=== PATIENT | female | born 1950 | race Caucasian/White ===

== ENCOUNTER 2018-05-19 09:13 | Outpatient (REF) | payer MEDICARE, SELFPAY ==
[2018-05-19 22:33] LABS: Anion Gap 10.1 mmol/L (3-11); BUN 26 mg/dL (7-18); CO2 28.9 mmol/L (21.0-32.0); CREATININE 1.23 mg/dL (0.55-1.02); Calcium 10.1 mg/dL (8.5-10.1); Chloride 104 mmol/L (98-107); Estimated GFR 43.55 (mL/min/1.73m2); Glucose 129 mg/dL (70-100); Potassium 3.8 mmol/L (3.5-5.1); Sodium 143 mmol/L (136-145)
== END 2018-05-19 09:33 ==
LOC: NCHCN 09:13
PROVIDERS: PCP Nurse Practitioner Family; Visit Provider Nurse Practitioner Family
DX: E11.9 Type 2 diabetes mellitus without complications (principal)
CPT/HCPCS: 80048

== ENCOUNTER 2019-05-21 08:28 | Outpatient (REF) | payer OTHER, SELFPAY ==
[2019-05-21 21:23] LABS: Anion Gap 11.3 mmol/L (3-11); BUN 23 mg/dL (7-18); CO2 28.7 mmol/L (21.0-32.0); CREATININE 1.51 mg/dL (0.55-1.02); Calcium 10.2 mg/dL (8.5-10.1); Chloride 104 mmol/L (98-107); Estimated GFR 34.27 (mL/min/1.73m2); Glucose 134 mg/dL (70-100); Sodium 144 mmol/L (136-145)
== END 2019-05-21 08:48 ==
LOC: NCHCN 08:28
PROVIDERS: PCP Nurse Practitioner Family; Visit Provider Nurse Practitioner Family
DX: E11.9 Type 2 diabetes mellitus without complications (principal)
CPT/HCPCS: 80048

== ENCOUNTER 2020-02-08 08:56 | Outpatient (REF) | payer OTHER, SELFPAY ==
[2020-02-08 21:51] LABS: Anion Gap 8.6 mmol/L (3-11); BUN 23 mg/dL (7-18); CO2 29.4 mmol/L (21.0-32.0); CREATININE 1.77 mg/dL (0.55-1.02); Calcium 10.3 mg/dL (8.5-10.1); Chloride 104 mmol/L (98-107); Estimated GFR 28.44 (mL/min/1.73m2); Glucose 115 mg/dL (74-106); Potassium 4.4 mmol/L (3.5-5.1); Sodium 142 mmol/L (136-145)
[2020-02-08 21:59] LABS: Hemoglobin A1C 5.8 % (3.8-5.6)
== END 2020-02-08 09:16 ==
LOC: NCHCN 08:56
PROVIDERS: PCP Nurse Practitioner Family; Visit Provider Nurse Practitioner Family
DX: E11.9 Type 2 diabetes mellitus without complications (principal); I10 Essential (primary) hypertension; N28.9 Disorder of kidney and ureter, unspecified
CPT/HCPCS: 80048; 83036

== ENCOUNTER 2020-02-17 10:14 | Outpatient (REF) | payer OTHER, SELFPAY ==
[2020-02-17 21:37] LABS: Anion Gap 10.6 mmol/L (3-11); BUN 23 mg/dL (7-18); CO2 29.4 mmol/L (21.0-32.0); CREATININE 1.75 mg/dL (0.55-1.02); Calcium 10.4 mg/dL (8.5-10.1); Chloride 101 mmol/L (98-107); Estimated GFR 28.82 (mL/min/1.73m2); Glucose 119 mg/dL (74-106); Potassium 4.3 mmol/L (3.5-5.1); Sodium 141 mmol/L (136-145)
[2020-02-17 22:08] LABS: COMMENT (LAB VIEW ONLY) 52.51 mg/dL; Microalb ug/mg Crea 6.5 ug/mg Cr
== END 2020-02-17 10:34 ==
LOC: NCHCN 10:14
PROVIDERS: PCP Nurse Practitioner Family; Visit Provider Nurse Practitioner Family
DX: N28.9 Disorder of kidney and ureter, unspecified (principal)
CPT/HCPCS: 80048; 82043; 82570

== ENCOUNTER 2020-04-29 14:57 | Outpatient (REF) | payer OTHER, SELFPAY ==
[2020-05-03 02:00] LABS: SARS-CoV-2 RNA Undetected (Undetected); SARS-CoV-2 Specimen Source Nasopharynx
== END 2020-04-29 15:17 ==
LOC: NCHCN 14:57
PROVIDERS: PCP Nurse Practitioner Family; Visit Provider Nurse Practitioner Family
DX: Z11.59 Encounter for screening for other viral diseases (principal)
CPT/HCPCS: U0003

== ENCOUNTER 2020-06-08 09:30 | Outpatient (REF) | payer OTHER, SELFPAY ==
[2020-06-08 22:06] LABS: Abs Immature Grans 0.02 10^3/uL (0.0-0.06); Absolute Basophil Count 0.03 10^3/uL (0.0-0.2); Absolute Eosinophil Count 0.28 10^3/uL (0.0-0.7); Absolute Lymphocyte Count 1.72 10^3/uL (1.2-3.4); Absolute Monocyte Count 0.47 10^3/uL (0.1-0.8); Absolute Neutrophil Count 3.36 10^3/uL (1.2-6.7); Basophils % 0.5; Eosinophils % 4.8; HGB 11.9 g/dL (11.2-15.7); Immature Grans % 0.3; Lymphocytes % 29.3; MCH 30.2 pg (27.0-33.0); MCHC 31.3 % (32.0-36.0); MCV 96.4 fL (80-95); MPV 11.3 fL (8.0-11.0); Neutrophils % 57.1; Nucleated RBC 0 %; Platelet Count 252 10^3/uL (130-400); RBC 3.94 10^6/uL (3.93-5.22); RDW 13.9 % (11.7-14.6); RDW-SD 49.1 fL; WBC 5.88 10^3/uL (4.4-10.8)
[2020-06-08 22:10] LABS: Anion Gap 6.8 mmol/L (3-11); BUN 21 mg/dL (7-18); CO2 30.2 mmol/L (21.0-32.0); CREATININE 1.58 mg/dL (0.55-1.02); Calcium 9.4 mg/dL (8.5-10.1); Chloride 104 mmol/L (98-107); Estimated GFR 32.43 (mL/min/1.73m2); Glucose 124 mg/dL (74-106); Potassium 4.6 mmol/L (3.5-5.1); Sodium 141 mmol/L (136-145)
== END 2020-06-08 09:50 ==
LOC: NCHCN 09:30
PROVIDERS: PCP Nurse Practitioner Family; Visit Provider Internal Medicine
DX: D64.9 Anemia, unspecified (principal); N18.4 Chronic kidney disease, stage 4 (severe)
CPT/HCPCS: 80048; 85025

== ENCOUNTER 2020-09-12 19:02 | Outpatient (REF) | payer OTHER, SELFPAY ==
[2020-09-12 13:51] LABS: Anion Gap 9.3 mmol/L (3-11); BUN 20 mg/dL (7-18); CO2 27.7 mmol/L (21.0-32.0); Calcium 9.3 mg/dL (8.5-10.1); Chloride 102 mmol/L (98-107); Estimated GFR 31.96 (mL/min/1.73m2); Glucose 152 mg/dL (74-106); Potassium 4.3 mmol/L (3.5-5.1); Sodium 139 mmol/L (136-145)
[2020-09-12 13:57] LABS: Hemoglobin A1C 6.4 % (<5.7)
== END 2020-09-12 19:22 ==
LOC: NCHCN 19:02
PROVIDERS: PCP Nurse Practitioner Family; Visit Provider Nurse Practitioner Family
DX: E11.9 Type 2 diabetes mellitus without complications (principal); I10 Essential (primary) hypertension; N18.4 Chronic kidney disease, stage 4 (severe); C64.9 Malignant neoplasm of unspecified kidney, except renal pelvis; L98.9 Disorder of the skin and subcutaneous tissue, unspecified
CPT/HCPCS: 80048; 83036

== ENCOUNTER 2021-02-01 15:18 | Outpatient (REF) | payer OTHER, SELFPAY ==
[2021-02-01 13:57] LABS: Anion Gap 7.6 mmol/L (3-11); BUN 24 mg/dL (7-18); CO2 33.4 mmol/L (21.0-32.0); CREATININE 1.7 mg/dL (0.55-1.02); Calcium 9.4 mg/dL (8.5-10.1); Chloride 102 mmol/L (98-107); Estimated GFR 29.71 (mL/min/1.73m2); Glucose 195 mg/dL (74-106); Potassium 3.8 mmol/L (3.5-5.1); Sodium 143 mmol/L (136-145)
[2021-02-01 14:17] LABS: COMMENT (LAB VIEW ONLY) 77.09 mg/dL; Microalb ug/mg Crea 28.9 ug/mg Cr
== END 2021-02-01 15:19 | disposition home or self-care (01) ==
LOC: NCHCN 15:18
PROVIDERS: PCP Nurse Practitioner Family; Visit Provider Nurse Practitioner Community Health
DX: N18.4 Chronic kidney disease, stage 4 (severe) (principal)
CPT/HCPCS: 80048; 82043; 82570

== ENCOUNTER 2021-03-27 08:18 | Outpatient (REF) | payer OTHER, SELFPAY ==
[2021-03-27 13:33] LABS: Abs Immature Grans 0.02 10^3/uL (0.0-0.06); Absolute Basophil Count 0.03 10^3/uL (0.0-0.2); Absolute Eosinophil Count 0.25 10^3/uL (0.0-0.7); Absolute Monocyte Count 0.51 10^3/uL (0.1-0.8); Absolute Neutrophil Count 4.18 10^3/uL (1.2-6.7); Basophils % 0.4; Eosinophils % 3.7; HCT 39.4 % (36.0-46.0); HGB 13.3 g/dL (11.2-15.7); Immature Grans % 0.3; Lymphocytes % 26.5; MCH 31.8 pg (27.0-33.0); MCHC 33.8 % (32.0-36.0); MCV 94.3 fL (80-95); MPV 10.7 fL (8.0-11.0); Monocytes % 7.5; Neutrophils % 61.6; Nucleated RBC 0 %; Platelet Count 265 10^3/uL (130-400); RBC 4.18 10^6/uL (3.93-5.22); RDW 13.7 % (11.7-14.6); RDW-SD 47.7 fL; WBC 6.79 10^3/uL (4.4-10.8)
[2021-03-27 13:44] LABS: Anion Gap 3.1 mmol/L (3-11); BUN 25 mg/dL (7-18); CO2 31.9 mmol/L (21.0-32.0); CREATININE 1.7 mg/dL (0.55-1.02); Calcium 9.4 mg/dL (8.5-10.1); Chloride 95 mmol/L (98-107); Estimated GFR 29.71 (mL/min/1.73m2); Glucose 163 mg/dL (74-106); Potassium 3.7 mmol/L (3.5-5.1); Sodium 130 mmol/L (136-145)
[2021-03-27 14:35] LABS: Hemoglobin A1C 6.5 % (<5.7)
== END 2021-03-27 08:19 | disposition home or self-care (01) ==
LOC: NCHCN 08:18
PROVIDERS: PCP Nurse Practitioner Family; Visit Provider Nurse Practitioner Family
DX: I12.9 Hypertensive chronic kidney disease with stage 1 through stage 4 chronic kidney disease, or unspecified chronic kidney disease (principal); E11.22 Type 2 diabetes mellitus with diabetic chronic kidney disease; N18.4 Chronic kidney disease, stage 4 (severe)
CPT/HCPCS: 80048; 83036; 85025

== ENCOUNTER 2021-04-04 10:53 | Outpatient (REF) | payer OTHER, SELFPAY ==
[2021-04-04 14:33] LABS: Anion Gap 8.9 mmol/L (3-11); BUN 24 mg/dL (7-18); CO2 30.1 mmol/L (21.0-32.0); CREATININE 1.6 mg/dL (0.55-1.02); Calcium 9.6 mg/dL (8.5-10.1); Chloride 92 mmol/L (98-107); Estimated GFR 31.87 (mL/min/1.73m2); Glucose 173 mg/dL (74-106); Potassium 3.4 mmol/L (3.5-5.1); Sodium 131 mmol/L (136-145)
== END 2021-04-04 10:54 | disposition home or self-care (01) ==
LOC: NCHCN 10:53
PROVIDERS: PCP Nurse Practitioner Family; Visit Provider Nurse Practitioner Family
DX: Z86.39 Personal history of other endocrine, nutritional and metabolic disease (principal)
CPT/HCPCS: 80048

== ENCOUNTER 2021-05-01 16:03 | Outpatient (REF) | payer OTHER, SELFPAY ==
[2021-05-01 17:52] LABS: Anion Gap 11.5 mmol/L (3-11); BUN 18 mg/dL (7-18); CO2 26.5 mmol/L (21.0-32.0); CREATININE 1.5 mg/dL (0.55-1.02); Calcium 9.4 mg/dL (8.5-10.1); Chloride 100 mmol/L (98-107); Estimated GFR 34.33 (mL/min/1.73m2); Glucose 166 mg/dL (74-106); Potassium 4.6 mmol/L (3.5-5.1); Sodium 138 mmol/L (136-145)
== END 2021-05-01 16:04 | disposition home or self-care (01) ==
LOC: LBN 16:03
PROVIDERS: PCP Nurse Practitioner Family; Visit Provider Nurse Practitioner Family
DX: E11.649 Type 2 diabetes mellitus with hypoglycemia without coma (principal); E87.1 Hypo-osmolality and hyponatremia
CPT/HCPCS: 80048

== ENCOUNTER 2021-05-11 09:46 | Outpatient (REF) | payer OTHER, SELFPAY ==
[2021-05-11 17:11] LABS: Anion Gap 5.2 mmol/L (3-11); BUN 16 mg/dL (7-18); CO2 31.8 mmol/L (21.0-32.0); CREATININE 1.4 mg/dL (0.55-1.02); Calcium 9.4 mg/dL (8.5-10.1); Chloride 105 mmol/L (98-107); Estimated GFR 37.18 (mL/min/1.73m2); Glucose 195 mg/dL (74-106); Potassium 4.2 mmol/L (3.5-5.1); Sodium 142 mmol/L (136-145)
== END 2021-05-11 09:47 | disposition home or self-care (01) ==
LOC: NCHCN 09:46
PROVIDERS: PCP Nurse Practitioner Family; Visit Provider Nurse Practitioner Family
DX: I10 Essential (primary) hypertension (principal); N18.4 Chronic kidney disease, stage 4 (severe); Z86.39 Personal history of other endocrine, nutritional and metabolic disease; R60.0 Localized edema; M16.12 Unilateral primary osteoarthritis, left hip
CPT/HCPCS: 80048

== ENCOUNTER 2021-05-17 21:36 | Outpatient (REF) | payer OTHER, SELFPAY ==
[2021-05-17 22:35] LABS: Sodium, Urine 65 mmol/L
[2021-05-17 22:35] LABS: Albumin 4.1 g/dL (3.4-5.0); Anion Gap 8.8 mmol/L (3-11); BUN 14 mg/dL (7-18); CO2 30.2 mmol/L (21.0-32.0); CREATININE 1.4 mg/dL (0.55-1.02); Calcium 9.8 mg/dL (8.5-10.1); Chloride 103 mmol/L (98-107); Estimated GFR 37.18 (mL/min/1.73m2); Glucose 159 mg/dL (74-106); PHOSPHORUS 4.7 mg/dL (2.6-4.7); Potassium 3.9 mmol/L (3.5-5.1); Sodium 142 mmol/L (136-145)
[2021-05-17 22:54] LABS: Bilirubin Negative (Negative); Blood Negative (Negative); Clarity Clear (Clear); Glucose Negative (Negative); Ketones Negative (Negative); Leukocyte Esterase Moderate (Negative); Nitrite Negative (Negative); Specific Gravity 1.015 (1.005-1.025); Urobilinogen 0.2 EU/dL (Up TO 0.2)
[2021-05-17 23:16] LABS: Bacteria Few HPF (Negative); C & S Indicated? Yes; Casts Negative LPF (Negative); Crystals Negative HPF (Negative); Epithelial Cells Few HPF (Negative); Mucus Negative (Negative); RBC 0-2 HPF (0-2)
[2021-05-18 16:51] LABS: Osmolality, Urine 212 mOsm/kg (150-1,150)
== END 2021-05-17 21:37 | disposition home or self-care (01) ==
LOC: LBN 21:36
PROVIDERS: PCP Nurse Practitioner Family; Visit Provider Nurse Practitioner Family
DX: E87.1 Hypo-osmolality and hyponatremia (principal); R82.998 Other abnormal findings in urine
CPT/HCPCS: 80051; 80069; 83935; 81003; 81015; 82436; 84300; 87086

== ENCOUNTER 2021-06-13 11:39 | Outpatient (REF) | payer OTHER, SELFPAY ==
[2021-06-13 15:32] LABS: Hemoglobin A1C 7.6 % (<5.7)
[2021-06-13 15:35] LABS: Anion Gap 8.3 mmol/L (3-11); BUN 16 mg/dL (7-18); CO2 29.7 mmol/L (21.0-32.0); CREATININE 1.4 mg/dL (0.55-1.02); Calcium 9.4 mg/dL (8.5-10.1); Chloride 101 mmol/L (98-107); Estimated GFR 37.18 (mL/min/1.73m2); Glucose 321 mg/dL (74-106); Potassium 4.6 mmol/L (3.5-5.1); Sodium 139 mmol/L (136-145)
== END 2021-06-13 11:40 | disposition home or self-care (01) ==
LOC: NCHCN 11:39
PROVIDERS: PCP Nurse Practitioner Family; Visit Provider Nurse Practitioner Family
DX: E11.9 Type 2 diabetes mellitus without complications (principal); N18.4 Chronic kidney disease, stage 4 (severe); D64.9 Anemia, unspecified
CPT/HCPCS: 80048; 83036

== ENCOUNTER 2021-09-15 09:36 | Outpatient (REF) | payer OTHER, SELFPAY ==
[2021-09-15 16:03] LABS: Hemoglobin A1C 7.9 % (<5.7)
[2021-09-15 16:21] LABS: Anion Gap 10.5 mmol/L (3-11); BUN 28 mg/dL (7-18); CO2 29.5 mmol/L (21.0-32.0); CREATININE 1.6 mg/dL (0.55-1.02); Calcium 9.4 mg/dL (8.5-10.1); Chloride 99 mmol/L (98-107); Estimated GFR 31.87 (mL/min/1.73m2); Glucose 188 mg/dL (74-106); Potassium 3.8 mmol/L (3.5-5.1); Sodium 139 mmol/L (136-145)
== END 2021-09-15 09:37 | disposition home or self-care (01) ==
LOC: NCHCN 09:36
PROVIDERS: PCP Nurse Practitioner Family; Visit Provider Nurse Practitioner Family
DX: E11.9 Type 2 diabetes mellitus without complications (principal); I10 Essential (primary) hypertension
CPT/HCPCS: 80048; 83036

== ENCOUNTER 2021-09-18 14:48 | Outpatient (REF) | payer OTHER, SELFPAY ==
--- NOTE | 2021-09-18 09:15 | SKI_PTH ---
PATIENT: Patricio LOC: [facility] U#:[id number] AGE/SX: 70/F ROOM: RE09/18/[address]: Karyna Garrido : 1950 BED: DIS: 09/18/2021 SPEC #: [id number] RECD: 09/18/21 17:22 STATUS: MASON LINDO #: [id number] JONI: 09/18/21 09:[address]: Karyna Zimmerman DEPT: Surgical Specimen RECD BY: Sirisha Logan Tissues: 1 - SKIN BIOPSY(SHAVE/PUNCH) Procedures: IMMUNOPEROXIDASE STAIN SKIN LEVEL 4 Comments: [id number]
== END 2021-09-18 14:49 | disposition home or self-care (01) ==
LOC: NCHCN 14:48
PROVIDERS: PCP Nurse Practitioner Family; Visit Provider Nurse Practitioner Family
DX: D22.71 Melanocytic nevi of right lower limb, including hip (principal)
CPT/HCPCS: 88305; 88361

== ENCOUNTER 2021-09-21 11:50 | Outpatient (REF) | payer OTHER, SELFPAY ==
[2021-09-21 14:47] LABS: Anion Gap 7.2 mmol/L (3-11); BUN 30 mg/dL (7-18); CO2 32.8 mmol/L (21.0-32.0); CREATININE 1.5 mg/dL (0.55-1.02); Calcium 9.5 mg/dL (8.5-10.1); Chloride 100 mmol/L (98-107); Estimated GFR 34.33 (mL/min/1.73m2); Glucose 230 mg/dL (74-106); Sodium 140 mmol/L (136-145)
== END 2021-09-21 11:51 | disposition home or self-care (01) ==
LOC: NCHCN 11:50
PROVIDERS: PCP Nurse Practitioner Family; Visit Provider Nurse Practitioner Family
DX: I10 Essential (primary) hypertension (principal)
CPT/HCPCS: 80048

== ENCOUNTER 2022-01-12 18:15 | Outpatient (REF) | payer OTHER, SELFPAY ==
[2022-01-12 14:32] LABS: Anion Gap 10.2 mmol/L (3-11); BUN 21 mg/dL (7-18); CO2 31.8 mmol/L (21.0-32.0); CREATININE 1.6 mg/dL (0.55-1.02); Calcium 9.2 mg/dL (8.5-10.1); Chloride 99 mmol/L (98-107); Estimated GFR 31.78 (mL/min/1.73m2); Glucose 290 mg/dL (74-106); Sodium 141 mmol/L (136-145)
== END 2022-01-12 18:16 | disposition home or self-care (01) ==
LOC: NCHCN 18:15
PROVIDERS: PCP Nurse Practitioner Family; Visit Provider Nurse Practitioner Family
DX: N18.32 Chronic kidney disease, stage 3b (principal)
CPT/HCPCS: 80048

== ENCOUNTER 2022-01-16 15:05 | Outpatient (REF) | payer MEDICARE, SELFPAY ==
[2022-01-16 16:52] LABS: COMMENT (LAB VIEW ONLY) 126.12 mg/dL; Microalb ug/mg Crea 2.8 ug/mg Cr
== END 2022-01-16 15:06 | disposition home or self-care (01) ==
LOC: NCHCN 15:05
PROVIDERS: PCP Nurse Practitioner Family; Visit Provider Nurse Practitioner Family
DX: E11.9 Type 2 diabetes mellitus without complications (principal)
CPT/HCPCS: 82043; 82570

== ENCOUNTER 2022-02-08 09:35 | Outpatient (REF) | payer MEDICARE, SELFPAY ==
[2022-02-08 16:40] LABS: BUN 26 mg/dL (7-18); CO2 28.6 mmol/L (21.0-32.0); CREATININE 1.8 mg/dL (0.55-1.02); Calcium 9.3 mg/dL (8.5-10.1); Estimated GFR 27.74 (mL/min/1.73m2); Glucose 253 mg/dL (74-106)
[2022-02-08 16:52] LABS: Anion Gap 11.4 mmol/L (3-11); Chloride 101 mmol/L (98-107); Potassium 3.9 mmol/L (3.5-5.1); Sodium 141 mmol/L (136-145)
== END 2022-02-08 09:36 | disposition home or self-care (01) ==
LOC: NCHCN 09:35
PROVIDERS: PCP Nurse Practitioner Family; Visit Provider Nurse Practitioner Family
DX: E11.9 Type 2 diabetes mellitus without complications (principal)
CPT/HCPCS: 80048

== ENCOUNTER 2022-04-11 10:34 | Outpatient (REF) | payer MEDICARE, SELFPAY ==
[2022-04-11 17:19] LABS: Anion Gap 9.5 mmol/L (3-11); BUN 22 mg/dL (7-18); CO2 31.5 mmol/L (21.0-32.0); CREATININE 1.7 mg/dL (0.55-1.02); Calcium 9.3 mg/dL (8.5-10.1); Chloride 101 mmol/L (98-107); Estimated GFR 29.63 (mL/min/1.73m2); Glucose 212 mg/dL (74-106); Potassium 4.2 mmol/L (3.5-5.1); Sodium 142 mmol/L (136-145)
[2022-04-11 18:23] LABS: Hemoglobin A1C 7.1 % (<5.7)
== END 2022-04-11 10:35 | disposition home or self-care (01) ==
LOC: NCHCN 10:34
PROVIDERS: PCP Nurse Practitioner Family; Visit Provider Nurse Practitioner Family
DX: E11.9 Type 2 diabetes mellitus without complications (principal)
CPT/HCPCS: 80048; 83036

== ENCOUNTER 2022-04-18 09:33 | Outpatient (REF) | payer MEDICARE, SELFPAY ==
[2022-04-18 22:54] LABS: Albumin, Ur < 0.6 mg/dL (See Note); Creatinine, Ur 46.3 mg/dL (See Note)
== END 2022-04-18 09:34 | disposition home or self-care (01) ==
LOC: NCHCN 09:33
PROVIDERS: PCP Nurse Practitioner Family; Visit Provider Family Medicine
DX: E11.9 Type 2 diabetes mellitus without complications (principal)
CPT/HCPCS: 82043; 82570

== ENCOUNTER 2022-07-12 18:30 | Outpatient (REF) | payer MEDICARE, SELFPAY ==
[2022-07-12 19:18] LABS: Abs Immature Grans 0.02 10^3/uL (0.0-0.06); Absolute Basophil Count 0.03 10^3/uL (0.0-0.2); Absolute Eosinophil Count 0.22 10^3/uL (0.0-0.7); Absolute Lymphocyte Count 1.87 10^3/uL (1.2-3.4); Absolute Monocyte Count 0.47 10^3/uL (0.1-0.8); Basophils % 0.4; Eosinophils % 3.2; HCT 45.3 % (36.0-46.0); HGB 14.9 g/dL (11.2-15.7); Immature Grans % 0.3; Lymphocytes % 27.1; MCH 32.1 pg (27.0-33.0); MCHC 32.9 % (32.0-36.0); MCV 98 fL (80-95); MPV 11.9 fL (8.0-11.0); Monocytes % 6.8; Neutrophils % 62.2; Platelet Count 239 10^3/uL (130-400); RBC 4.64 10^6/uL (3.93-5.22); RDW-SD 50.5 fL; WBC 6.91 10^3/uL (4.4-10.8)
[2022-07-12 19:33] LABS: ALT 22 U/L (14-59); AST 20 U/L (15-37); Albumin 4.1 g/dL (3.4-5.0); Alkaline Phosphatase 69 U/L (46-116); Anion Gap 10.7 mmol/L (3-11); BUN 27 mg/dL (7-18); Bilirubin, Total 0.6 mg/dL (0.2-1.0); CO2 29.3 mmol/L (21.0-32.0); CREATININE 1.8 mg/dL (0.55-1.02); Calcium 9.3 mg/dL (8.5-10.1); Chloride 102 mmol/L (98-107); Estimated GFR 29.75 (mL/min/1.73m2); Glucose 212 mg/dL (74-106); Potassium 3.8 mmol/L (3.5-5.1); Sodium 142 mmol/L (136-145); Total Protein 7.5 g/dL (6.4-8.2)
== END 2022-07-12 18:31 | disposition home or self-care (01) ==
LOC: NCHCN 18:30
PROVIDERS: PCP Nurse Practitioner Family; Visit Provider Family Medicine
DX: E11.9 Type 2 diabetes mellitus without complications (principal); N18.32 Chronic kidney disease, stage 3b
CPT/HCPCS: 80053; 85025

== ENCOUNTER 2023-01-10 13:27 | Outpatient (REF) | payer MEDICARE, SELFPAY ==
[2023-01-10 15:06] LABS: Anion Gap 3.7 mmol/L (3-11); BUN 24 mg/dL (7-18); CO2 34.3 mmol/L (21.0-32.0); CREATININE 1.6 mg/dL (0.55-1.02); Calcium 9.6 mg/dL (8.5-10.1); Chloride 102 mmol/L (98-107); Estimated GFR 34.05 (mL/min/1.73m2); Glucose 147 mg/dL (74-106); Potassium 4.2 mmol/L (3.5-5.1); Sodium 140 mmol/L (136-145)
[2023-01-10 15:29] LABS: Hemoglobin A1C 7.1 % (<5.7)
== END 2023-01-10 13:28 | disposition home or self-care (01) ==
LOC: NCHCN 13:27
PROVIDERS: PCP Nurse Practitioner Family; Visit Provider Nurse Practitioner Family
DX: E11.9 Type 2 diabetes mellitus without complications (principal); I10 Essential (primary) hypertension
CPT/HCPCS: 80048; 83036

== ENCOUNTER 2024-01-13 15:06 | Outpatient (REF) | payer MEDICARE, SELFPAY ==
[2024-01-13 15:53] LABS: HCT 50.3 % (36.0-46.0); MCH 32.8 pg (27.0-33.0); MCHC 33.8 % (32.0-36.0); MCV 97 fL (80-95); MPV 11.6 fL (8.0-11.0); Platelet Count 223 10^3/uL (130-400); RBC 5.18 10^6/uL (3.93-5.22); RDW 12.6 % (11.7-14.6); RDW-SD 44.9 fL; WBC 6.84 10^3/uL (4.4-10.8)
[2024-01-13 18:11] LABS: Anion Gap 8.7 mmol/L (3-11); BUN 20 mg/dL (7-18); CO2 30.3 mmol/L (21.0-32.0); CREATININE 1.4 mg/dL (0.55-1.02); Calcium 9.9 mg/dL (8.5-10.1); Chloride 102 mmol/L (98-107); Estimated GFR 39.73 (mL/min/1.73m2); Glucose 175 mg/dL (74-106); Potassium 4.8 mmol/L (3.5-5.1); Sodium 141 mmol/L (136-145)
[2024-01-13 23:31] LABS: Parathyroid Hormone,Intact 26 pg/mL (19-88)
== END 2024-01-13 15:07 | disposition home or self-care (01) ==
LOC: NCHCN 15:06
PROVIDERS: PCP Nurse Practitioner Family; Visit Provider Nurse Practitioner Family
DX: E11.9 Type 2 diabetes mellitus without complications (principal); I10 Essential (primary) hypertension; N18.32 Chronic kidney disease, stage 3b
CPT/HCPCS: 80048; 85027; 83036; 83970

== ENCOUNTER 2024-01-21 11:21 | Outpatient (REF) | payer MEDICARE, SELFPAY ==
[2024-01-21 15:28] LABS: COMMENT (LAB VIEW ONLY) 86.22 mg/dL; PROTEIN 6.7 mg/dL; Prot/Crea Ur Ratio 0.07
== END 2024-01-21 11:22 | disposition home or self-care (01) ==
LOC: NCHCN 11:21
PROVIDERS: PCP Nurse Practitioner Family; Visit Provider Nurse Practitioner Family
DX: N18.32 Chronic kidney disease, stage 3b (principal)
CPT/HCPCS: 82565; 84156

== ENCOUNTER 2024-07-23 12:19 | Outpatient (REF) | payer MEDICARE, SELFPAY ==
[2024-07-23 15:20] LABS: Hemoglobin A1C 6.7 % (<5.7)
[2024-07-23 15:32] LABS: Calculated LDL 100 mg/dL (<100); Cholesterol 177 mg/dL (<200); HDL Cholesterol 45 mg/dL (40-60); Triglyceride 160 mg/dL (<150)
[2024-07-23 16:17] LABS: HCT 48.1 % (36.0-46.0); HGB 16.4 g/dL (11.2-15.7); MCH 31.5 pg (27.0-33.0); MCHC 34.1 % (32.0-36.0); MCV 93 fL (80-95); MPV 10.9 fL (8.0-11.0); Platelet Count 245 10^3/uL (130-400); RDW 12.6 % (11.7-14.6); RDW-SD 42.8 fL; WBC 6.79 10^3/uL (4.4-10.8)
[2024-07-23 16:25] LABS: Bilirubin Negative (Negative); Blood Negative (Negative); Clarity Clear (Clear); Glucose 500 mg/dL (Negative); Ketones Negative (Negative); Leukocyte Esterase Small (Negative); Nitrite Positive (Negative); Urobilinogen 0.2 mg/dL (Up to 0.2); pH 6.5 (5-8)
[2024-07-23 16:43] LABS: Bacteria Many HPF (Negative); C & S Indicated? No; Crystals Negative HPF (Negative); Epithelial Cells Rare HPF (Negative); Mucus Negative (Negative); Other Cells Rare Yeast (Negative); RBC Negative HPF (0-2)
[2024-07-23 16:45] LABS: Anion Gap 11.4 mmol/L (3-11); BUN 9 mg/dL (7-18); CO2 27.6 mmol/L (21.0-32.0); COMMENT (LAB VIEW ONLY) 59.65 mg/dL; CREATININE 1.3 mg/dL (0.55-1.02); Calcium 10.1 mg/dL (8.5-10.1); Chloride 104 mmol/L (98-107); Estimated GFR 43.42 (mL/min/1.73m2); Glucose 120 mg/dL (74-106); PHOSPHORUS 4.3 mg/dL (2.6-4.7); PROTEIN 8.9 mg/dL; Potassium 4.1 mmol/L (3.5-5.1); Prot/Crea Ur Ratio 0.14; Sodium 143 mmol/L (136-145)
[2024-07-23 16:48] LABS: COMMENT (LAB VIEW ONLY) 60.36 mg/dL; Microalb ug/mg Crea 17.4 ug/mg Cr
[2024-07-24 08:29] LABS: Parathyroid Hormone,Intact 26.4 pg/mL (19.0-88.0)
== END 2024-07-23 12:20 | disposition home or self-care (01) ==
LOC: NCHCN 12:19
PROVIDERS: PCP Nurse Practitioner Family; Visit Provider Nurse Practitioner Family
DX: E78.5 Hyperlipidemia, unspecified (principal); E11.9 Type 2 diabetes mellitus without complications; N18.32 Chronic kidney disease, stage 3b
CPT/HCPCS: 80061; 80069; 85027; 81003; 81015; 82043; 82565; 82570; 83036; 83970; 84156